=== PATIENT | female | born 1965 | race Caucasian/White ===

== ENCOUNTER → 2018-07-19 | Outpatient (CLI) | payer BC ==
[2015-10-15 12:01] VITALS: BP 111/68
--- NOTE | 2018-07-23 07:52 | RAD ---
Left calf ultrasound, 07/19/2018: History: Pain after hearing a pop The area of clinical concern in the left calf was carefully scanned. Several small superficial varicosities are noted. No mass or unusual fluid collection is seen. If clinical concern persists, MR scanning may be useful for further evaluation.
== END | disposition home or self-care (01) ==
LOC: US 15:38
PROVIDERS: ATTEND Family Medicine
DX: I83.892 Varicose veins of left lower extremity with other complications (principal)
CPT/HCPCS: 76881